=== PATIENT | female | born 1990 | race African-American/Black ===

== ENCOUNTER 2019-04-17 23:41 | Emergency (ER) | payer MEDICARE, MEDICAID ==
[~2019-04-17] VITALS: Ht 170.2 cm; Wt 49.9 kg
[2019-04-17 23:50] VITALS: BP 109/71
--- NOTE | 2019-04-17 23:50 | NUR ---
ED Nurse Note: Patient walked in to ER due to vaginal discharge x 3 days. Patient describes the dischage as thick white with a fishy odor. Patient denies burning, painful urination. No stated medical history. Alert and oriented, verbally responsive. Afebrile. VSS.
[2019-04-18] MEDS ORDERED: METRONIDAZOLE500 MG ORAL (00:13)
[2019-04-18] MEDS ORDERED: METROGEL-VAGINA70 G1 VAGIN (00:13)
[2019-04-18 00:16] VITALS: BP 109/71
--- NOTE | 2019-04-18 00:16 | NUR ---
ED Nurse Note: Pt cleared by ERMD for discharge. DC instructions/prescription was given and explained to pt and verbalized understanding of teachings. All medical deviecs such as ID band removed. Pt is AAO x4, ambulatory and left with all personal belongings.
--- NOTE | 2019-04-18 00:24 | Emergency Room Report ---
History of Present Illness General Chief Complaint: Female Urogenital Problems Source: Patient Present Illness HPI Patient presents with complaints of vaginal discharge for the past 3 days Denies any chest pain denies any abdominal pain Denies any dysuria frequency denies any back or flank pain patient reports that she has had similar symptoms with diagnosis of bacterial vaginosis Denies any vaginal bleeding Allergies: Coded Allergies: No Known Allergies (Unverified , 04/17/19) Patient History Past Medical History: see triage record Last Menstrual Period: 03/2019 Now: No : 1 Para: 0 Reviewed Nursing Documentation: PMH: Agreed; PSxH: Agreed Nursing Documentation-PMH Past Medical History: No Stated History Review of Systems All Other Systems: negative except mentioned in HPI Physical Exam Vital Signs Date Time Temp Pulse Resp B/P (MAP) Pulse Ox O2 Delivery O2 Flow Rate FiO2 04/17/19 23:44 98.2 81 16 109/71 (84) 96 Room Air Sp02 EP Interpretation: reviewed, normal General Appearance: well appearing, no apparent distress Head: normocephalic, atraumatic Eyes: bilateral eye PERRL, bilateral eye EOMI ENT: normal pharynx Respiratory: no respiratory distress, no retraction Cardiovascular #1: no edema Musculoskeletal: normal inspection Neurologic: alert, oriented x3, responsive Skin: no rash Medical Decision Making Diagnostic Impression: Primary Impression: vaginosis ER Course Multiple differentials including but not limited to vaginosis, bacterial versus fungal, All considered Given the patient's description and presentation findings are consistent with bacterial vaginosis I did have a discussion with the patient regarding STD testing and requiring close outpatient follow-up patient understands and will follow closely Labs Test 04/17/19 23:52 Urine HCG, Qualitative Negative (NEGATIVE) Last Vital Signs Date Time Temp Pulse Resp B/P (MAP) Pulse Ox O2 Delivery O2 Flow Rate FiO2 04/17/19 23:50 98.2 70 16 109/71 96 Room Air Status: unchanged Disposition: HOME, SELF-CARE Condition: Stable Scripts Metronidazole* (FLAGYL*) 500 Mg Tablet 500 MG ORAL BID for 7 Days, #14 TAB Prov: Rayo Franklin DO 04/18/19 Metronidazole* (METROGEL-VAGINAL*) 70 Gm Gel.w.appl 1 APPL VAGIN EVERY 12 HOURS for 7 Days, #70 GM Prov: Rayo Franklin DO 04/18/19 Referrals: NON PHYSICIAN (PCP) [facility] Patient Instructions: Bacterial Vaginosis, [id number] Additional Instructions: Patient is provided with the discharge instructions notified to follow up with primary doctor in the next 2-3 days otherwise return to the er with any worsening symptoms. Please note that this report is being documented using [employer] technology. This can lead to erroneous entry secondary to incorrect interpretation by the dictating instrument. Rayo Franklin DO Apr 18, 2019 00:24
== END 2019-04-18 00:16 | disposition home or self-care (01) ==
LOC: EMR 23:59
DX: N76.0 Acute vaginitis (principal)
CPT/HCPCS: 81025; 99282